=== PATIENT | female | born 1945 | race Caucasian/White ===

== ENCOUNTER 2017-10-24 08:33 | Outpatient (CLI) | payer MEDICARE, BC ==
[2017-10-24 09:14] LABS: BASOPHILS % (AUTO) 0.7 % (0-1); EOSINOPHILS # (AUTO) 0.4 X10'3 (0-0.9); EOSINOPHILS % (AUTO) 5.6 % (0-6); HEMATOCRIT 39.5 % (35.0-45.0); HEMOGLOBIN 13.9 g/dl (12.0-16.0); LYMPHOCYTES # (AUTO) 1.5 X10'3 (1.1-4.8); LYMPHOCYTES % (AUTO) 22.4 % (21-51); MEAN CORPUSCULAR HEMOGLOBIN 33.5 PG (27.0-31.0); MEAN CORPUSCULAR HGB CONC 35.3 % (33.0-36.5); MEAN CORPUSCULAR VOLUME 95.1 FL (78-98); MEAN PLATELET VOLUME 8.3 FL (7.4-10.4); MONOCYTES # (AUTO) 0.6 X10'3 (0-0.9); MONOCYTES % (AUTO) 9.1 % (2-12); NEUTROPHILS # (AUTO) 4.3 X10'3 (1.8-7.7); NEUTROPHILS % (AUTO) 62.2 % (42-75); PLATELET COUNT 252 X10'3 (140-440); RED BLOOD COUNT 4.16 X10'6 (4.20-5.60); RED CELL DISTRIBUTION WIDTH 14.1 % (11.5-14.5); WHITE BLOOD COUNT 6.9 X10'3 (4.5-11.0)
[2017-10-24 09:20] LABS: CLARITY,URINE Clear (Clear); COLOR,URINE Yellow (Yellow); GLUCOSE, URINE Negative (Neg); KETONES,URINE Negative (Neg); LEUKOCYTE ESTERASE ,URINE Large (Neg); NITRITES, URINE Negative (Neg); OCCULT BLOOD,URINE Negative (Neg); PROTEIN,URINE Negative (Neg); UROBILINOGEN,URINE 0.2 E.U/dL (0.2-1.0)
[2017-10-24 09:24] LABS: UA COLLECTION TYPE CLN CATCH MIDSTREAM
[2017-10-24 09:28] LABS: BACTERIA,URINE 1+ /HPF (Neg); RBC,URINE NONE SEEN /HPF (0-2); SQUAMOUS EPITHELIAL CELL,UR MODERATE /LPF (FEW); WBC,URINE 0-4 /HPF (0-4)
[2017-10-24 09:32] LABS: ALANINE AMINOTRANSFERASE 21 U/L (12-78); ALBUMIN 4.1 G/DL (3.4-5.0); ALBUMIN/GLOBULIN RATIO 1.1 (1.1-1.5); ALKALINE PHOSPHATASE 74 IU/L (46-116); ANION GAP 7 (8-16); ASPARTATE AMINO TRANSFERASE 17 U/L (10-37); BILIRUBIN,TOTAL 0.6 MG/DL (0.1-1.0); BLOOD UREA NITROGEN 13 MG/DL (7-18); BUN/CREATININE RATIO 11.6 (6.6-38.0); CALCIUM 9.4 MG/DL (8.5-10.1); CHLORIDE 99 MMOL/L (99-107); CREATININE 1.12 MG/DL (0.40-0.90); GLUCOSE 93 MG/DL (70-104); POTASSIUM 4.3 MMOL/L (3.5-5.1); SODIUM 136 MMOL/L (135-145); TOTAL CARBON DIOXIDE 29.6 MMOL/L (24-32); TOTAL PROTEIN 7.8 G/DL (6.4-8.2); eGFR 48 ML/MIN
== END 2017-10-24 23:59 | disposition home or self-care (01) ==
LOC: LAB 08:33
PROVIDERS: ATTEND Specialist
DX: Z01.818 Encounter for other preprocedural examination (principal); Z51.81 Encounter for therapeutic drug level monitoring; N39.0 Urinary tract infection, site not specified
CPT/HCPCS: 36415; 80053; 81001; 85025; 85610; 87070

== ENCOUNTER 2017-11-04 05:26 | Inpatient (IN) | payer MEDICARE, BC ==
[2017-11-04] VITALS (20 sets, daily range): BP systolic 89–123; BP diastolic 43–77
[~2017-11-04] VITALS: Ht 170.2 cm; Wt 97.0 kg
[~2017-11-04 05:26] MED LIST: AMLO2.5T2 PO; CALC-964 PO; CETI-194; CHOL2000 PO; FERR325T32 PO; LISI40TA4 PO; MAGN400C PO; MULT-1085 PO; SIMV20TA5 PO; ringers solution, lacted 1,000 ML IV SCH
[2017-11-04] MEDS ORDERED: gabapentin 300mg capsule PO ONE (05:30)
[2017-11-04] MEDS ORDERED: famotidine 20mg tablet PO ONE (05:30)
[2017-11-04] MEDS ORDERED: tranexamic acid inj. 1,000 MG in normal saline 100ml IV soln 90 ML IV ONE (05:30)
[2017-11-04] MEDS ORDERED: oxyCODONE SR 10mg (sust. release) tab PO ONE (05:30)
[2017-11-04] MEDS ORDERED: cefazolin/dext.iso 2gm/50ml 50 ML IV ONE (05:30)
[2017-11-04] MEDS ORDERED: acetaminophen 325mg tablet PO ONE (05:30)
[2017-11-04] MEDS ORDERED: LIDOcaine 1% (10mg/ml) 2ml vial ONE (06:13)
[2017-11-04] MEDS ORDERED: ROPIVAcaine 0.5% (5mg/ml) 30ml vial ONE (06:52)
[2017-11-04] MEDS ORDERED: bacitracin inj 150,000 UNIT in sodium chloride irrig. sol 3,000 ML IR ONE (07:00)
[2017-11-04] MEDS ORDERED: tetracaine 1% (10mg/ml) pres. free inj. ONE (07:23)
[2017-11-04] MEDS ORDERED: fentaNYL/PF 50MCG/1 ML 2ML syringe ONE (07:25)
[2017-11-04] MEDS ORDERED: MIDAZolam 5mg/5ml vial ONE (07:25)
[2017-11-04] MEDS ORDERED: MORPHINE SULFATE/PF 0.5 MG/ML 10ML AMPUL ONE (07:26)
[2017-11-04] MEDS ORDERED: ringers solution, lacted 1,000 ML IV SCH (08:39)
[2017-11-04] MEDS ORDERED: naloxone 2mg/2ml inj 2 MG in normal saline 500ml IV soln 500 ML IV PRN (08:39)
[2017-11-04] MEDS ORDERED: morphine 2 MG/ML inj. syringe IV PRN ×2 (08:40)
[2017-11-04] MEDS ORDERED: meperidine/PF 50mg/ml syringe IV PRN ×3 (08:40)
[2017-11-04] MEDS ORDERED: proCHLORperazine 10 MG/2 ml inj IV PRN (08:40)
[2017-11-04] MEDS ORDERED: diphenhydrAMINE 50 mg/ml inj IV PRN (08:40)
[2017-11-04] MEDS ORDERED: ondansetron/PF 4mg/2ml inj IV PRN ×3 (08:40→09:25)
[2017-11-04] MEDS ORDERED: ceFAZolin 1000mg inj ONE (08:49)
[2017-11-04] MEDS ORDERED: propofol inj 20 ML IV ONE ×2 (09:09)
[2017-11-04] MEDS ORDERED: bisacodyl 10mg suppository rectal RC PRN (09:25)
[2017-11-04] MEDS ORDERED: magnesium hydroxide 30ml (MOM) UD suspension PO PRN (09:25)
[2017-11-04] MEDS ORDERED: oxyCODONE IR 5mg (immed. release) tablet PO PRN (09:25)
[2017-11-04] MEDS ORDERED: diphenhydrAMINE 25mg capsule PO PRN ×2 (09:25)
[2017-11-04] MEDS ORDERED: HYDROmorphone inj. 0.5 MG/0.5 ML DISP.SYRIN IV PRN (09:25)
[2017-11-04] MEDS ORDERED: acetaminophen 325mg tablet PO PRN (09:25)
[2017-11-04] MEDS: potassium cl 20mEq in 1/2 NS 1,000 ML IV SCH ×2 (11:11→22:00)
[2017-11-04] MEDS: gabapentin 300mg capsule PO SCH ×2 (13:33→20:10)
[2017-11-04] MEDS: acetaminophen 325mg tablet PO SCH ×2 (13:34→20:09)
[2017-11-04] MEDS: cefazolin 1gm/NS 100mL 100 ML IV SCH (16:01)
[2017-11-04] MEDS: oxyCODONE IR 5mg (immed. release) tablet PO PRN ×2 (16:11→20:10)
[2017-11-04] MEDS: amLODIPine 2.5mg tablet PO SCH (20:04)
[2017-11-04] MEDS: lisinopril 20mg tablet PO SCH (20:04)
[2017-11-04] MEDS: ascorbic acid 500mg tablet PO SCH (20:09)
[2017-11-04] MEDS: celeCOXIB 100mg capsule PO SCH (20:09)
[2017-11-04] MEDS: sennosides 8.6mg tablet PO SCH (20:10)
[2017-11-04] MEDS: atorvastatin 10mg tablet PO SCH (20:10)
[2017-11-05] MEDS: oxyCODONE IR 5mg (immed. release) tablet PO PRN ×5 (00:02→20:33)
[2017-11-05] MEDS: cefazolin 1gm/NS 100mL 100 ML IV SCH (00:02)
[2017-11-05] MEDS: potassium cl 20mEq in 1/2 NS 1,000 ML IV SCH ×4 (01:24→22:55)
[2017-11-05 02:00] VITALS: BP 112/54
[2017-11-05] MEDS: acetaminophen 325mg tablet PO SCH ×4 (02:00→20:30)
[2017-11-05 06:19] LABS: BASOPHILS % (AUTO) 0.2 % (0-1); EOSINOPHILS # (AUTO) 0.2 X10'3 (0-0.9); EOSINOPHILS % (AUTO) 2.9 % (0-6); LYMPHOCYTES # (AUTO) 1.1 X10'3 (1.1-4.8); LYMPHOCYTES % (AUTO) 15.6 % (21-51); MEAN CORPUSCULAR HGB CONC 34.5 % (33.0-36.5); MEAN CORPUSCULAR VOLUME 95.5 FL (78-98); MONOCYTES # (AUTO) 0.6 X10'3 (0-0.9); MONOCYTES % (AUTO) 9.3 % (2-12); PLATELET COUNT 198 X10'3 (140-440); RED BLOOD COUNT 3.35 X10'6 (4.20-5.60); RED CELL DISTRIBUTION WIDTH 14.5 % (11.5-14.5); WHITE BLOOD COUNT 6.9 X10'3 (4.5-11.0)
[2017-11-05 06:37] LABS: ANION GAP 5 (8-16); CHLORIDE 98 MMOL/L (99-107); POTASSIUM 4.3 MMOL/L (3.5-5.1); PROTHROMBIN TIME 10.6 SECONDS (9.0-12.0); SODIUM 130 MMOL/L (135-145); TOTAL CARBON DIOXIDE 26.6 MMOL/L (24-32)
[2017-11-05 07:08] VITALS: BP 105/62
[2017-11-05] MEDS: gabapentin 300mg capsule PO SCH ×3 (08:59→20:29)
[2017-11-05] MEDS: ascorbic acid 500mg tablet PO SCH ×2 (09:00→20:29)
[2017-11-05] MEDS: multivitamins, therapeutics tablet PO SCH (09:00)
[2017-11-05] MEDS: celeCOXIB 100mg capsule PO SCH ×2 (09:00→20:29)
[2017-11-05] MEDS ORDERED: warfarin 10mg tablet PO ONE (10:00)
[2017-11-05 12:02] VITALS: BP 91/46
[2017-11-05 18:00] VITALS: BP 109/58
[2017-11-05] MEDS: Protein Shake (high protein) 240ml (8oz) cup PO SCH (18:00)
[2017-11-05] MEDS: atorvastatin 10mg tablet PO SCH (20:29)
[2017-11-05] MEDS: sennosides 8.6mg tablet PO SCH (20:30)
[2017-11-05] MEDS: lisinopril 20mg tablet PO SCH (21:00)
[2017-11-05] MEDS: amLODIPine 2.5mg tablet PO SCH (21:00)
[2017-11-05 22:00] VITALS: BP 116/48
[2017-11-06] MEDS: acetaminophen 325mg tablet PO SCH ×2 (02:00→07:07)
[2017-11-06] MEDS: oxyCODONE IR 5mg (immed. release) tablet PO PRN (05:20)
[2017-11-06 06:00] VITALS: BP 118/52
[2017-11-06 06:59] LABS: BASOPHILS % (AUTO) 0.2 % (0-1); EOSINOPHILS # (AUTO) 0.3 X10'3 (0-0.9); EOSINOPHILS % (AUTO) 3.2 % (0-6); HEMATOCRIT 33.3 % (35.0-45.0); HEMOGLOBIN 11.6 g/dl (12.0-16.0); LYMPHOCYTES # (AUTO) 0.7 X10'3 (1.1-4.8); LYMPHOCYTES % (AUTO) 8.2 % (21-51); MEAN CORPUSCULAR HEMOGLOBIN 33.1 PG (27.0-31.0); MEAN CORPUSCULAR HGB CONC 34.9 % (33.0-36.5); MEAN CORPUSCULAR VOLUME 95.1 FL (78-98); MEAN PLATELET VOLUME 8.3 FL (7.4-10.4); MONOCYTES # (AUTO) 0.9 X10'3 (0-0.9); MONOCYTES % (AUTO) 10.2 % (2-12); NEUTROPHILS # (AUTO) 6.7 X10'3 (1.8-7.7); NEUTROPHILS % (AUTO) 78.2 % (42-75); PLATELET COUNT 217 X10'3 (140-440); RED BLOOD COUNT 3.51 X10'6 (4.20-5.60); RED CELL DISTRIBUTION WIDTH 13.7 % (11.5-14.5); WHITE BLOOD COUNT 8.6 X10'3 (4.5-11.0)
[2017-11-06] MEDS: multivitamins, therapeutics tablet PO SCH (07:06)
[2017-11-06] MEDS: celeCOXIB 100mg capsule PO SCH (07:06)
[2017-11-06] MEDS: gabapentin 300mg capsule PO SCH (07:06)
[2017-11-06 07:07] LABS: INR 1.1 INR; PROTHROMBIN TIME 11.4 SECONDS (9.0-12.0)
[2017-11-06] MEDS: ascorbic acid 500mg tablet PO SCH (07:07)
[2017-11-06 07:13] LABS: ALBUMIN 2.9 G/DL (3.4-5.0); ANION GAP 7 (8-16); BLOOD UREA NITROGEN 10 MG/DL (7-18); BUN/CREATININE RATIO 10.1 (6.6-38.0); CALCIUM 8.3 MG/DL (8.5-10.1); CHLORIDE 96 MMOL/L (99-107); CREATININE 0.99 MG/DL (0.40-0.90); GLUCOSE 117 MG/DL (70-104); POTASSIUM 4.6 MMOL/L (3.5-5.1); SODIUM 129 MMOL/L (135-145); TOTAL CARBON DIOXIDE 26.3 MMOL/L (24-32); eGFR 55 ML/MIN
[2017-11-06] MEDS: Protein Shake (high protein) 240ml (8oz) cup PO SCH (08:35)
[2017-11-06] MEDS ORDERED: WALKERFR (08:58)
[2017-11-06] MEDS ORDERED: ASPI-1264 PO (08:58)
[2017-11-06] MEDS ORDERED: acetaminophen 325mg tablet PO PRN (09:25)
[2017-11-06] MEDS ORDERED: warfarin 10mg tablet PO ONE (10:00)
== END 2017-11-06 12:00 | disposition home or self-care (01) | DRG 470 ==
LOC: PAS IN 05:26 → EDSTATUS 07:30 → ORTHO 4S 10:30
PROVIDERS: ADMIT Specialist; ATTEND Specialist
PROC: 0SR902Z Replacement of Right Hip Joint with Metal on Polyethylene Synthetic Substitute, Open Approach (ICD-10-PCS; principal; 2017-11-04 07:21)
DX: M16.11 Unilateral primary osteoarthritis, right hip (principal); Z96.642 Presence of left artificial hip joint; D62 Acute posthemorrhagic anemia; K91.89 Other postprocedural complications and disorders of digestive system; E78.5 Hyperlipidemia, unspecified; I10 Essential (primary) hypertension; R11.2 Nausea with vomiting, unspecified; Z91.09 Other allergy status, other than to drugs and biological substances; Z79.899 Other long term (current) drug therapy; Z79.82 Long term (current) use of aspirin; Z87.891 Personal history of nicotine dependence; Y83.8 Other surgical procedures as the cause of abnormal reaction of the patient, or of later complication, without mention of misadventure at the time of the procedure; Y92.89 Other specified places as the place of occurrence of the external cause
CPT/HCPCS: 36415; 73502; 80048; 80051; 85025; 85610; 86885; 86900; 86901; 97116; 97162; 97530; A4565; A6253; A6255; A6449; A6455; A7000; C1758; C1776; J0690; J2250; J2274; J2405; J2704; J2795; J3010; J3490; J7030; J7120